=== PATIENT | male | born 1950 | race Hispanic/Latino ===

== ENCOUNTER → 2017-06-21 | Day surgery (SDC) | payer MEDICARE, MEDICAID ==
[~2017-06-21] VITALS: Ht 157.5 cm; Wt 74.0 kg
[~2017-06-21] MED LIST: ACET325C PO; ASPI81TA3 PO; Sodium Biphos-Phos 133 mL Enema RECTAL PRN; Sodium Chloride LOK Flush 10 mL Syringe IV PRN; fentaNYL-PF 50 mCg/mL 2 mL Inj IVPUSH PRN
[2017-06-21 08:13] VITALS: BP 129/78; PULSE 57; RESP 16; O2SAT 98
[2017-06-21] MEDS: 0.9% Sodium Chloride 1,000 ML IV SCH ×2 (08:18→08:49)
[2017-06-21 08:54] VITALS: BP 113/69; PULSE 51; RESP 16; O2SAT 94
[2017-06-21 09:04] VITALS: BP 106/63; PULSE 47; RESP 16; O2SAT 95
[2017-06-21 09:14] VITALS: BP 111/71; PULSE 57; RESP 16; O2SAT 98
--- NOTE | 2017-06-21 13:24 | ENDO ---
[address] [address] ENDOSCOPY PROCEDURE PATIENT: NOLA NAM : 1950 MR#: [id number] ADMIT: 06/21/2017 JOB ID: [id number] DATE OF SERVICE: 06/21/2017 PRE-PROCEDURE DIAGNOSIS: Rectosigmoid colon cancer. POST-PROCEDURE DIAGNOSIS: Rectosigmoid colon cancer, mild radiation proctitis. PROCEDURE: Colonoscopy through colostomy, proctoscopy. ENDOSCOPIST: Jeffrey Segal MD MEDICATIONS: Versed 3 mg, fentanyl 75 mcg. INDICATION: The patient is a 66-year-old man who underwent a low anterior resection with end colostomy in 2011 for rectosigmoid colon cancer, T3 N0. His radial margin was positive so he received adjuvant radiation therapy and chemotherapy. He underwent attempted colostomy takedown in 2013 which was unsuccessful because of dense adhesions in the pelvis. He is now satisfied with his colostomy. He has not undergone endoscopic surveillance since that time. After discussion of risks and benefits, he agreed to proceed with colonoscopy and proctoscopy. FINDINGS: The quality of the prep was fair. No polyps were identified. In the rectal vault, the rectum had a length of 11 cm. No neoplastic change was seen but there was mild radiation proctitis. Biopsies were not obtained. DESCRIPTION OF PROCEDURE: The patient was brought to the endoscopy suite, and connected to hemodynamic monitoring, pulse oximetry, capnography. A procedural pause was performed. His colostomy appliance was removed. The CF-180AL colonoscope was inserted through the colostomy in the left lower quadrant and advanced under visualization until the cecum was reached with photo documentation of the ileocecal valve and appendiceal orifice. Terminal ileum was intubated, which was normal. The quality of prep was fair with quite a bit of retained liquid stool. Lavage and suctioning was performed. The scope was carefully withdrawn and the mucosa was evaluated. There were no polyps or other masses identified. The scope was withdrawn from the colostomy and a new colostomy appliance was applied. He was then placed in the left lateral decubitus position. After digital rectal exam, the scope was inserted through the anus to the apex of the rectal vault, which was at a distance of 11 cm from the anal verge. There was mild radiation proctitis, but no evidence of neoplasia. The rectum had some mild linear areas of friability just from gas insufflation, so biopsies were not obtained and the scope was withdrawn and the procedure terminated. He tolerated the entire procedure well. RECOMMENDATIONS: For screening purposes, his next endoscopic evaluation should be in three years.
== END | disposition home or self-care (01) ==
LOC: END 00:07
PROVIDERS: ATTEND Student in an Organized Health Care Education/Training Program
DX: Z12.11 Encounter for screening for malignant neoplasm of colon (principal); Z85.038 Personal history of other malignant neoplasm of large intestine; K62.7 Radiation proctitis; Z43.3 Encounter for attention to colostomy
CPT/HCPCS: 44388; 45330; 99153; G0500; J2250; J3010; J7030